=== PATIENT | male | born 1960 | race Caucasian/White ===

== ENCOUNTER 2019-01-20 13:58 | Outpatient (CLI) | payer BC ==
--- NOTE | 2019-01-20 15:22 | CT ---
CT ABDOMEN AND PELVIS WITHOUT CONTRAST: INDICATIONS: Renal calculi. COMPARISON: None. TECHNIQUE: Multiple axial tomograms obtained through the abdomen and pelvis without IV enhancement. FINDINGS: The lung bases are clear. The liver, spleen, and pancreas are unremarkable. The adrenal glands are normal. Review of the kidneys shows no hydronephrosis. Coronal images show a tiny, nonobstructing calculus i n the lower pole collecting structures of the right kidney, measuring in the 2 mm range. No other ur inary tract calculus identified. The ureters are of normal caliber. The bladder is mildly distended and unremarkable. The prostate is mildly prominent. Small bowel loops appear normal. The appendix appears normal. Diverticulosis of the left colon and sigmoid. The aorta is of normal caliber. No evidence of mass or adenopathy. Moderate degenerative spine changes with degenerative disk changes, m ost pronounced at L5-S1. Mild degenerative changes at both hips. IMPRESSION: 1. A tiny, nonobstructing calculus in the lower pole collecting structures of the right kidney. 2. Diverticulosis, left colon and sigmoid. 3. No acute process apparent. POS: BROOKE
== END 2019-01-20 13:59 | disposition home or self-care (01) ==
LOC: BICCT 13:58
PROVIDERS: ATTEND Urology
DX: N20.0 Calculus of kidney (principal); R35.0 Frequency of micturition; K57.30 Diverticulosis of large intestine without perforation or abscess without bleeding
CPT/HCPCS: 74176

== ENCOUNTER 2019-03-18 12:26 | Outpatient (CLI) | payer BC ==
[2019-03-18 13:38] LABS: Bilirubin Negative (Negative); Blood, Urine Trace (Negative); Clarity CLEAR (Clear); Glucose, Urine (Dipstick) Negative (Negative); Leukocyte Negative (Negative); Nitrite Negative (Negative); Protein, Urine (Dipstick) Negative (Neg-Trace); Specific Gravity, Urine 1.003 (1.002-1.036); Urobilinogen 0.2 mg/dL (0.2-1.0)
--- NOTE | 2019-03-18 13:38 | RAD ---
AP ABDOMINAL RADIOGRAPH: 03/18/2019 HISTORY: Renal calculus. COMPARISON: CT abdomen and pelvis from 01/20/2019. FINDINGS: The punctate calculus in the inferior pole right kidney is not visualized on this exam. The renal sh adows are mostly obscured due to overlying bowel gas. No obvious suspicious calcifications are seen. The bowel gas pattern is nonspecific with a small to moderate amount of retained fecal material see n throughout the colon. Multilevel degenerative changes are seen in the spine. There is a punctate metallic density seen overlying the right upper and lateral aspect of the right iliac bone, which may represent a punctate metallic foreign body near the skin surface on the prior CT exam. IMPRESSION: No suspicious calcifications are seen on this examination. The punctate inferior pole right renal ca lculus is not visualized on radiographic evaluation. POS: C
--- NOTE | 2019-03-18 13:39 | ULT ---
RENAL ULTRASOUND: INDICATIONS: Kidney stones. CORRELATION: CT abdomen from 01/20/2019 (no evidence of renal calculi present on this study). FINDINGS: The kidneys appear unremarkable. There is no hydronephrosis. Both kidneys measure approximately 12 cm in length. The distended bladder appears unremarkable. No evidence of renal calculus identified. IMPRESSION: Unremarkable renal ultrasound. POS: NAYAN
[2019-03-18 13:44] LABS: Anion Gap 11 mmol/L (10-20); BUN (Urea Nitrogen) 11 mg/dL (8.4-25.7); Calc. Creatinine Clearance 0 mL/min (70-130); Calcium 9.5 mg/dL (7.8-10.44); Carbon Dioxide 30 mmol/L (22-29); Chloride 100 mmol/L (98-107); Estimated GFR-MDRD 78; Glucose 95 mg/dL (70-105); Potassium 3.8 mmol/L (3.5-5.1); Sodium 137 mmol/L (136-145)
[2019-03-18 13:47] LABS: Bacteria/HPF None Seen HPF (None Seen); Hyaline Casts/LPF 0-3 HYALINE CAST LPF (0-3 Hyaline); RBC/HPF 0-3 HPF (0-3); Squamous Epithelial None Seen HPF (0-3); WBC/HPF None Seen HPF (0-3)
== END 2019-03-18 12:27 | disposition home or self-care (01) ==
LOC: ULT 12:26
PROVIDERS: ATTEND Urology
DX: N20.0 Calculus of kidney (principal)
CPT/HCPCS: 74018; 76770; 80048; 81001; 87086